=== PATIENT | male | born 1940 | race Caucasian/White ===

== ENCOUNTER 2024-04-02 09:33 | Inpatient (IN) | payer MEDICARE ==
[2024-04-02 10:39] LABS: #Basophils 0.03 10x3/uL (0.0-0.2); %Basophils 0.3 % (0.0-1.0); %Lymphocytes 14.3 % (21.0-51.0); %Monocytes 9.3 % (0.0-10.0); %Neutrophils 74.3 % (42.0-75.0); Hematocrit 36.1 % (42.0-52.0); Hemoglobin 11.8 g/dL (14.0-18.0); Mean Corpuscular HGB CONC 32.7 g/dL (32.0-36.0); Mean Corpuscular Hemoglobin 31.3 pg (27.0-31.0); Mean Corpuscular Volume 95.8 fL (78.0-98.0); Mean Platelet Volume 9.1 fL (7.4-10.4); Platelet Count 294 10x3/uL (130-400); RBC Distribution Width 13.2 % (11.5-14.5); Red Blood Cell (RBC) Count 3.77 mill/uL (4.70-6.10)
[2024-04-02 11:12] LABS: Troponin I 0.023 ng/mL (< 0.028)
[2024-04-02 11:17] LABS: ALT (SGPT) 17 U/L (Less than 45); Albumin 2.5 g/dL (3.1-4.5); Alkaline Phosphatase 114 U/L (40-110); Anion Gap 12 mmol/L (10-20); BUN (Urea Nitrogen) 14 mg/dL (8.4-25.7); Bilirubin, Total 0.5 mg/dL (0.3-1.2); Calc. Creatinine Clearance 0 mL/min (70-130); Calcium 8.6 mg/dL (7.8-10.44); Carbon Dioxide 21 mmol/L (23-31); Chloride 109 mmol/L (98-107); Estimated GFR 53; Globulin 4.7 g/dL (2.4-3.5); Glucose 114 mg/dL (83-110); Lipase 17 U/L (8-78); Potassium 3.4 mmol/L (3.5-5.1); Protein, Total 7.2 g/dL (5.8-8.1); Sodium 139 mmol/L (136-145)
[2024-04-02 11:29] LABS: AST (SGOT) 24 U/L (11-34)
[2024-04-02 11:33] LABS: Bacteria/HPF None Seen HPF (None Seen); Bilirubin Negative (Negative); Blood, Urine 1+ (Negative); CAUTI Indications for Culture Alt mental st,lethar; Clarity Clear (Clear); Glucose, Urine (Dipstick) Normal (Negative); Ketone, Urine Negative (Negative); Leukocyte Negative Leu/uL (Negative); Nitrite Negative (Negative); Protein, Urine (Dipstick) 30 mg/dL (Neg-Trace); Squamous Epithelial None Seen HPF (0-3); Urobilinogen Normal mg/dL (Less than 2); pH, Urine 5.5 (5.0-9.0)
[2024-04-02 11:36] LABS: Urine Culture Reflex No No
[2024-04-02] MEDS ORDERED: Cefepime 1 GM VIAL ONE (11:36)
[2024-04-02] MEDS ORDERED: Sodium Chloride 0.9% 100 ML ONE (11:36)
[2024-04-02] MEDS ORDERED: Ondansetron ODT 4 MG TAB PO PRN (12:48)
[2024-04-02] MEDS ORDERED: Acetaminophen 325 MG TAB PO PRN (12:48)
[2024-04-02] MEDS ORDERED: Acetaminophen 650 MG Suppository PR PRN (12:48)
[2024-04-02] MEDS ORDERED: Ipratropium/Albuterol 3 ML NEB NEB PRN (12:48)
[2024-04-02] MEDS ORDERED: Calcium Carbonate 500 MG ChewTAB PO PRN (12:48)
[2024-04-02] MEDS ORDERED: Ondansetron PF 4 MG/2 ML Vial IVP PRN (12:48)
[2024-04-02] MEDS ORDERED: GUAIFENESIN SF SOLN 200 MG/10 ML UDCUP PO PRN (12:52)
[2024-04-02 13:31] LABS: Magnesium 1.8 mg/dL (1.6-2.6)
[2024-04-02] MEDS: Ipratropium/Albuterol 3 ML NEB NEB SCH (13:38)
[2024-04-02] MEDS: LevoFLOXacin 750 mg/D5W 750 MG in Premix 1 BAG IVPB SCH (13:52)
[2024-04-02 14:16] VITALS: BMI 26.3
[2024-04-02] MEDS: Gabapentin 300 MG CAP PO SCH ×2 (15:38→16:51)
[2024-04-02] MEDS: Memantine 10 MG TAB PO SCH ×2 (15:38→16:52)
[2024-04-02] MEDS: Potassium Chloride 20 MEQ TAB PO SCH (16:51)
[2024-04-02] MEDS: Potassium Chloride 30 MEQ in Sodium Chloride 0.9% 1,000 ML IV SCH (16:51)
[2024-04-02] MEDS: Floranex 1 GM Packet PO SCH (20:29)
[2024-04-02] MEDS: Aspirin Chewable 81 MG TAB PO SCH (20:29)
[2024-04-02] MEDS: DULoxetine 30 MG CAP PO SCH (20:30)
[2024-04-02] MEDS: Atorvastatin Calcium 20 MG TAB PO SCH (20:30)
[2024-04-02] MEDS ORDERED: Atorvastatin Calcium 40 MG TAB PO SCH (21:00)
[2024-04-02] MEDS: Sodium Chloride 0.9% 100 ML ONE (23:29)
[2024-04-02] MEDS: Cefepime 2 GM in Sodium Chloride 0.9% 100 ML IVPB SCH (23:30)
[2024-04-03 05:15] LABS: #Basophils 0.04 10x3/uL (0.0-0.2); %Basophils 0.5 % (0.0-1.0); %Eosinophils 1.8 % (0.0-10.0); %Lymphocytes 13.9 % (21.0-51.0); %Neutrophils 74.1 % (42.0-75.0); Hematocrit 32.4 % (42.0-52.0); Hemoglobin 10.7 g/dL (14.0-18.0); Mean Corpuscular Hemoglobin 31.6 pg (27.0-31.0); Mean Corpuscular Volume 95.6 fL (78.0-98.0); Mean Platelet Volume 9.1 fL (7.4-10.4); Platelet Count 305 10x3/uL (130-400); RBC Distribution Width 13.2 % (11.5-14.5); Red Blood Cell (RBC) Count 3.39 mill/uL (4.70-6.10)
[2024-04-03 05:39] LABS: Anion Gap 13 mmol/L (10-20); BUN (Urea Nitrogen) 15 mg/dL (8.4-25.7); Calc. Creatinine Clearance 57 mL/min (70-130); Calcium 8.5 mg/dL (7.8-10.44); Carbon Dioxide 17 mmol/L (23-31); Chloride 113 mmol/L (98-107); Estimated GFR 60; Glucose 112 mg/dL (83-110); Potassium 3.9 mmol/L (3.5-5.1); Sodium 139 mmol/L (136-145)
[2024-04-03] MEDS: Memantine 10 MG TAB PO SCH (08:17)
[2024-04-03] MEDS: Gabapentin 300 MG CAP PO SCH (08:17)
[2024-04-03] MEDS: Enoxaparin 40 MG (0.4 mL) SYRINGE SC SCH (08:18)
[2024-04-03] MEDS ORDERED: Memantine 10 MG TAB PO SCH (09:00)
[2024-04-03] MEDS ORDERED: DULoxetine 30 MG CAP PO SCH (09:00)
[2024-04-03] MEDS: Carvedilol 3.125 MG TAB PO SCH (17:22)
[2024-04-04] MEDS: Senokot S 8.6-50 MG TAB PO PRN (12:14)
[2024-04-04] MEDS: LevoFLOXacin 750 mg/D5W 750 MG in Premix 1 BAG IVPB SCH (13:20)
[2024-04-05 07:52] LABS: #Basophils 0.05 10x3/uL (0.0-0.2); %Basophils 0.6 % (0.0-1.0); %Eosinophils 2.3 % (0.0-10.0); %Lymphocytes 15.9 % (21.0-51.0); %Monocytes 6.8 % (0.0-10.0); %Neutrophils 73.7 % (42.0-75.0); Hemoglobin 7.7 g/dL (14.0-18.0); Mean Corpuscular HGB CONC 33.5 g/dL (32.0-36.0); Mean Corpuscular Hemoglobin 32.1 pg (27.0-31.0); Mean Corpuscular Volume 95.8 fL (78.0-98.0); Platelet Count 475 10x3/uL (130-400); RBC Distribution Width 13.1 % (11.5-14.5)
[2024-04-05 07:56] LABS: Anion Gap 12 mmol/L (10-20); BUN (Urea Nitrogen) 16 mg/dL (8.4-25.7); Calc. Creatinine Clearance 53 mL/min (70-130); Calcium 8.9 mg/dL (7.8-10.44); Carbon Dioxide 18 mmol/L (23-31); Chloride 110 mmol/L (98-107); Estimated GFR 55; Glucose 102 mg/dL (83-110); Potassium 4.2 mmol/L (3.5-5.1); Sodium 136 mmol/L (136-145)
[2024-04-05 19:14] LABS: Hematocrit 36.2 % (42.0-52.0)
[2024-04-05] MEDS: Pantoprazole 40 MG DR.TAB PO SCH (20:38)
[2024-04-05 22:59] LABS: Hematocrit 34.2 % (42.0-52.0); Hemoglobin 11.2 g/dL (14.0-18.0)
[2024-04-06 05:40] LABS: #Basophils 0.04 10x3/uL (0.0-0.2); %Basophils 0.5 % (0.0-1.0); %Eosinophils 2.2 % (0.0-10.0); %Lymphocytes 14.8 % (21.0-51.0); %Monocytes 6.4 % (0.0-10.0); %Neutrophils 75.6 % (42.0-75.0); Hematocrit 34.1 % (42.0-52.0); Hemoglobin 11.2 g/dL (14.0-18.0); Mean Corpuscular HGB CONC 32.8 g/dL (32.0-36.0); Mean Corpuscular Hemoglobin 31.2 pg (27.0-31.0); Mean Platelet Volume 9.1 fL (7.4-10.4); Platelet Count 353 10x3/uL (130-400); RBC Distribution Width 12.9 % (11.5-14.5); Red Blood Cell (RBC) Count 3.59 mill/uL (4.70-6.10)
[2024-04-06 06:07] LABS: Anion Gap 14 mmol/L (10-20); BUN (Urea Nitrogen) 21 mg/dL (8.4-25.7); Calc. Creatinine Clearance 52 mL/min (70-130); Calcium 8.9 mg/dL (7.8-10.44); Carbon Dioxide 19 mmol/L (23-31); Chloride 108 mmol/L (98-107); Estimated GFR 54; Glucose 111 mg/dL (83-110); Potassium 3.8 mmol/L (3.5-5.1); Sodium 137 mmol/L (136-145)
[2024-04-06 12:09] LABS: EliA RAS New Method **** NEW METHOD ****; Rheumatoid Factor IgM Antibody 1.5 IU/mL (<3.5 Negative)
[2024-04-06] MEDS: LevoFLOXacin 750 MG TAB PO SCH (12:09)
[2024-04-07 05:34] LABS: #Basophils 0.05 10x3/uL (0.0-0.2); %Basophils 0.4 % (0.0-1.0); %Eosinophils 1.4 % (0.0-10.0); %Lymphocytes 10.3 % (21.0-51.0); %Monocytes 6.9 % (0.0-10.0); %Neutrophils 80.3 % (42.0-75.0); Hematocrit 33.9 % (42.0-52.0); Mean Corpuscular HGB CONC 32.4 g/dL (32.0-36.0); Mean Corpuscular Hemoglobin 31.2 pg (27.0-31.0); Mean Platelet Volume 9.1 fL (7.4-10.4); Platelet Count 385 10x3/uL (130-400); Red Blood Cell (RBC) Count 3.53 mill/uL (4.70-6.10)
[2024-04-07 05:51] LABS: Anion Gap 14 mmol/L (10-20); BUN (Urea Nitrogen) 23 mg/dL (8.4-25.7); Calc. Creatinine Clearance 47 mL/min (70-130); Calcium 8.8 mg/dL (7.8-10.44); Carbon Dioxide 19 mmol/L (23-31); Chloride 108 mmol/L (98-107); Estimated GFR 48; Glucose 120 mg/dL (83-110); Potassium 3.9 mmol/L (3.5-5.1); Sodium 137 mmol/L (136-145)
[2024-04-07 07:49] VITALS: BP 126/68; TEMP 98.4
== END 2024-04-07 13:34 | DRG 193 ==
LOC: ERS 09:33 → EDBD 09:33 → T4-A 13:24 → OBSVTOIN 04-03 12:31
PROVIDERS: ADMIT Internal Medicine; ATTEND Hospitalist
DX: J18.9 Pneumonia, unspecified organism (principal); G93.41 Metabolic encephalopathy; L03.116 Cellulitis of left lower limb; I10 Essential (primary) hypertension; E78.5 Hyperlipidemia, unspecified; R53.81 Other malaise; E87.6 Hypokalemia; M06.9 Rheumatoid arthritis, unspecified; E86.0 Dehydration; I25.10 Atherosclerotic heart disease of native coronary artery without angina pectoris; Z90.49 Acquired absence of other specified parts of digestive tract; Z95.1 Presence of aortocoronary bypass graft; Z88.8 Allergy status to other drugs, medicaments and biological substances
CPT/HCPCS: 36415; 51701; 71045; 80048; 80053; 81001; 82274; 83520; 83690; 83735; 84145; 84443; 84484; 85025; 86141; 87040; 93005; 94640; 94760; 96374; 96375; J0692; J1650; J1956; J3480; J7030; J7620